=== PATIENT | male | born 1985 | race African-American/Black ===

== ENCOUNTER 2024-06-15 23:27 | Emergency (ER) | payer OTHER ==
[2024-06-15] MEDS: traMADol 50 MG Tab PO ONE (23:37)
[2024-06-15] MEDS: Ibuprofen 600 MG Tab PO ONE (23:37)
== END 2024-06-16 00:13 | disposition home or self-care (01) ==
LOC: MW.ED 23:27
DX: S43.402A Unspecified sprain of left shoulder joint, initial encounter (principal); E11.9 Type 2 diabetes mellitus without complications; Z79.4 Long term (current) use of insulin; Z75.8 Other problems related to medical facilities and other health care; X50.0XXA Overexertion from strenuous movement or load, initial encounter; Y92.89 Other specified places as the place of occurrence of the external cause; Y99.0 Civilian activity done for income or pay
CPT/HCPCS: 73030; 99283; A9270

== ENCOUNTER 2024-08-04 10:44 | Emergency (ER) | payer OTHER | END 2024-08-04 11:39 | disposition home or self-care (01) | LOC: MW.ED 10:44 | DX: E11.9 Type 2 diabetes mellitus without complications (principal); Z76.0 Encounter for issue of repeat prescription; Z79.4 Long term (current) use of insulin | CPT/HCPCS: 99281; 99283 ==